=== PATIENT | female | born 1950 | race Caucasian/White ===

== ENCOUNTER 2024-01-25 12:49 | Outpatient (AMB) | payer MEDICARE, SELFPAY ==
--- NOTE | 2024-01-25 12:56 | MHC.PC.OV ---
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 Accompanied by: Self / Same As Patient Allergies escitalopram [From Lexapro] Allergy (Severe, Verified 01/25/24 13:02) Unknown amoxicillin [From Augmentin] Allergy (Unknown, Verified 01/25/24 13:02) Unknown atorvastatin [From Lipitor] Allergy (Unknown, Verified 01/25/24 13:02) Unknown azithromycin [From Zithromax Z-Elliot] Allergy (Unknown, Verified 01/25/24 13:02) Unknown clavulanic acid [From Augmentin] Allergy (Unknown, Verified 01/25/24 13:02) Unknown diltiazem Allergy (Unknown, Verified 01/25/24 13:02) Unknown fexofenadine [From Candi] Allergy (Unknown, Verified 01/25/24 13:02) Unknown morphine Allergy (Unknown, Verified 01/25/24 13:02) Unknown nifedipine [From Procardia] Allergy (Unknown, Verified 01/25/24 13:02) Unknown pravastatin [From Pravachol] Allergy (Unknown, Verified 01/25/24 13:02) Unknown Tobacco use date assessed: 01/25/24 Fall risk assessment: No Falls in past year Last assessed Fall Risk: 01/25/24 Dental Screening Dental Screen Date: 01/25/24 Did you have a dental visit in the last 12 months?: Yes Did you have a dental problem in the last 6 months where you did not have access to dental care?: No Was dental information given to patient?: Patient has dentist HPI HPI Comments History of Present Illness Details This is a 73 year old female with a past medical history of hypertension, hyperlipidemia, dpression, anxiety, KD stage III presenting for follow up CV: On losartan 25mg daily, on simvastatin 10mg daily. Lipids at goal. Intolerant of pravastatin and atorvastatin previouslyBlood pressure is well controlled. Previously was having CP -worked up for ACS. Had b/l cataract surgery 2021 CKD Stage III:-saw Dr Gamboa in the past. Creatinine has been stable Depression/anxiety-taking celexa 10mg once daily Cologuard 03/2022-negative Mammo 04/2023 [facility]BSO 02/16/2022 ROS CONSTITUTIONAL: Denies weight loss, fever and chills. HEENT: Denies changes in vision and hearing. RESPIRATORY: Denies SOB and cough. CV: Denies palpitations and CP GI: Denies abdominal pain, nausea, vomiting and diarrhea. : Denies dysuria and urinary frequency. MSK: Denies new myalgia and joint pain. SKIN: Denies rash and pruritus. NEUROLOGICAL: Denies headache PSYCHIATRIC: Denies recent changes in mood. PHYSICAL EXAM: GENERAL: Alert and oriented x 3. NAD EYES: EOMI. Anicteric. HENT: Moist mucous membranes. No scleral icterus. No cervical lymphadenopathy. LUNGS: Clear to auscultation bilaterally. CARDIOVASCULAR: Regular rate and rhythm. No murmur. No JVD. ABDOMEN: Soft, non-tender +bs EXTREMITIES: No edema. Non-tender. SKIN: No rashes or lesions. Warm. NEUROLOGIC: No focal neurological deficits. CN II-XII grossly intact PSYCHIATRIC: Cooperative. Appropriate mood and affect [facility] Medical History Prediabetes Mass of subcutaneous tissue of back Mass of soft tissue of upper arm Hypertension HLD (hyperlipidemia) History of [place] syndrome Elevated fasting glucose Depression with anxiety CKD stage 3b, GFR 30-44 ml/min Cataracts, bilateral Bilateral kidney stones Allergic rhinitis Surgical History History of colonoscopy History of total adrenalectomy History of bilateral salpingo-oophorectomy (BSO) History of total abdominal hysterectomy History of cataract surgery Family History Mother Lung cancer Brother Cardiac disease Father Hx of CABG High cholesterol Stroke Maternal Grandfather Gastric adenocarcinoma Paternal Grandmother Pneumonia Paternal Grandfather Parkinson disease Paternal Aunt Cancer Paternal Uncle Lung cancer Social History Household Members: Spouse Housing: House Alcohol intake: never Patient Tobacco Use Status: Former Tobacco user e-Cigarette/Vaping Use: Never Used service: No Current occupational status: retired Current occupational exposures/hazards: No Cognitive needs: No Hearing needs: No Vision needs: No Questionnaire PHQ-9 Over the last 2 weeks, how often have you been bothered by any of the following problems? 1. Little interest or pleasure in doing things: not at all 2. Feeling down, depressed, or hopeless: not at all 3. Trouble falling or staying asleep, or sleeping too much: not at all 4. Feeling tired or having little energy: not at all 5. Poor appetite or overeating: several days 6. Feeling bad about yourself - or that you are a failure or have let yourself or your family down: not at all 7. Trouble concentrating on things, such as reading the newspaper or watching television: not at all 8. Moving or speaking so slowly that other people could have noticed. Or the opposite - being so fidgety or restless that you have been moving around a lot more than usual: not at all 9. Thoughts that you would be better off or of hurting yourself in some way: not at all Total score: 1 Depression Screening Interpretation: Negative (neg) Depression Screening Done: Yes 27434 - PHQ-9 Billing: Yes Source: Developed by Drs. Girma aJime, Nadya Rodriguez, Ilan Currie and colleagues, with an educational harvey from [employer]. Thrive Questionnaire Date Thrive assessed: 01/25/24 I am a: Patient What is your living situation today?: I have a steady place to live Within the past 12 months, did the food you bought not last and you didn't have the money to get more?: Never true Within the past 12 months, did you worry whether your food would run out before you got money to buy more?: Never true Do you have trouble paying for medicines?: No Do you have trouble getting transportation to medical appointments?: No Do you have trouble paying your heating and electricity bill?: No Do you have trouble taking care of your child, family member or friend?: No Do you have trouble with day-to-day activities such as bathing, preparing meals, shopping, managing finances, etc.?: No Are you currently unemployed and looking for a job?: No Are you interested in more education?: No Please select the resources that you would like help with: None Currently or been in a relationship where the following occur: No concerns reported THRIVE Score: 0 AUDIT C Alcohol Use Questionnaire (AUDIT-C) 1. How often do you have a drink containing alcohol?: Never 3. How often do you have six or more drinks on one occasion?: Never Total Score: 0 LAUREN-7 AMB Questionnaire LAUREN-7 Date LAUREN - 7 assessed: 01/25/24 Feeling nervous, anxious, or on edge: 1 = Several days Not being able to stop or control worryin = Several days Worrying too much about different things: 1 = Several days Trouble relaxin = Several days Being so restless that it is hard to sit still: 1 = Several days Becoming easily annoyed or irritable: 0 = Not at all Feeling afraid as if something awful might happen: 1 = Several days Total LAUREN-7 score (0-4 normal; 5-9 mild; 10-14 moderate; 15-21 severe): 6 Source: Developed by Drs. Girma Jaime, Nadya Rodriguez, Ilan Currie and colleagues, with an educational harvey from [employer]. LAUREN-7 Assessment Billing LAUREN-7 Assessment Tool: LAUREN-7 Assessment 16124 Physical exam (Primary Care) Vital Signs: Last Vital Signs Pulse 95 01/25/24 13:04 Resp 13 01/25/24 13:04 BP 118/56 L 01/25/24 13:04 Pulse Ox 96 01/25/24 13:04 Oxygen Delivery Method Room Air 01/25/24 13:04 BMI result Body Mass Index 26.6 Tobacco/Smoking Status: Tobacco use Status Tobacco use date assessed 01/25/24 01/25/24 13:13 Patient Tobacco Use Status Former Tobacco user 01/25/24 13:13 e-Cigarette/Vaping Use Never Used 01/25/24 13:13 PHQ-9: PHQ-9 Score PHQ-9: Total score 1 01/25/24 14:05 Depression Screening Interpretation: Negative (neg) Thrive Assessment: Date of Thrive Assessment Date Thrive assessed 01/25/24 01/25/24 13:13 Currently or been in a relationship where the following occur: No concerns reported Assessment and Plan Assessment & Plan (1) CKD stage 3b, GFR 30-44 ml/min: Code(s): N18.32 - Chronic kidney disease, stage 3b Plan: monitor levels. avoid nsaids. labs ordered (2) HLD (hyperlipidemia): Code(s): E78.5 - Hyperlipidemia, unspecified Qualifiers: Hyperlipidemia type: mixed hyperlipidemia Qualified Code(s): E78.2 - Mixed hyperlipidemia (3) Depression with anxiety: Code(s): F41.8 - Other specified anxiety disorders Plan: stable (4) Hypertension: Code(s): I10 - Essential (primary) hypertension Qualifiers: Hypertension type: primary hypertension Qualified Code(s): I10 - Essential (primary) hypertension (5) Prediabetes: Code(s): R73.03 - Prediabetes Plan: check A1c Orders: Orders Lipid Panel 01/25/24 E78.2 - Mixed hyperlipidemia, F41.8 - Other specified anxiety disorders, I10 - Essential (primary) hypertension, N18.32 - Chronic kidney disease, stage 3b, R73.03 - Prediabetes Vitamin B12 01/25/24 R53.83 - Other fatigue Comprehensive Met. Panel 01/25/24 E78.2 - Mixed hyperlipidemia, F41.8 - Other specified anxiety disorders, I10 - Essential (primary) hypertension, N18.32 - Chronic kidney disease, stage 3b, R73.03 - Prediabetes Hemoglobin A1c 01/25/24 E78.2 - Mixed hyperlipidemia, F41.8 - Other specified anxiety disorders, I10 - Essential (primary) hypertension, N18.32 - Chronic kidney disease, stage 3b, R73.03 - Prediabetes Complete Blood Count Auto Diff 01/25/24 E78.2 - Mixed hyperlipidemia, F41.8 - Other specified anxiety disorders, I10 - Essential (primary) hypertension, R73.03 - Prediabetes Medications: New citalopram 10 mg PO DAILY 90 tabs 3RF losartan 25 mg PO DAILY 90 tabs 3RF 90 days simvastatin 10 mg PO DAILY 90 tabs 3RF Coding Level of Care Code Est Pt Level 5 (42824) Diagnoses CKD stage 3b, GFR 30-44 ml/min N18.32 Mixed hyperlipidemia E78.2 Hyperlipidemia type: mixed hyperlipidemia Depression with anxiety F41.8 Primary hypertension I10 Hypertension type: primary hypertension Prediabetes R73.03 Additional Codes LAUREN-7 Assessment Billing - LAUREN-7 Assessment Tool: LAUREN-7 Assessment [id number] ([id number])
[2024-01-25 13:04] VITALS: BP 118/56; PULSE 95; RESP 13; O2SAT 96; BMI 26.6
== END 2024-01-25 13:47 | disposition home or self-care (01) ==
PROVIDERS: PCP Internal Medicine; Visit Provider Internal Medicine
DX: I12.9 Hypertensive chronic kidney disease with stage 1 through stage 4 chronic kidney disease, or unspecified chronic kidney disease (principal); N18.32 Chronic kidney disease, stage 3b; E78.2 Mixed hyperlipidemia; F41.8 Other specified anxiety disorders; R73.03 Prediabetes
CPT/HCPCS: 99214

== ENCOUNTER 2024-01-25 13:52 | Outpatient (REF) | payer MEDICARE, SELFPAY ==
[2024-01-25 17:08] LABS: MANUAL DIFF FLAG NO
[2024-01-25 17:19] LABS: Estimated Average Glucose 108 mg/dL; Hemoglobin A1c % 5.4 % (<6.0)
[2024-01-25 17:29] LABS: Alanine Aminotransferase 10 U/L (0-31); Albumin Level 4.1 g/dL (3.5-5.0); Alkaline Phosphatase 96 U/L (39-117); Anion Gap 13 (12-20); Aspartate Amino Transferase 14 U/L (5-31); Bilirubin Total 0.5 mg/dL (0.0-1.0); Blood Urea Nitrogen 18 mg/dL (9-16); Calcium 10.1 mg/dL (8.4-10.2); Carbon Dioxide 28 mmol/L (22-29); Chloride 106 mmol/L (96-108); Cholesterol 169 mg/dL (<200); Estimated Glomerular Filt Rate 52; Glucose Random 92 mg/dL (60-115); HDL Cholesterol 47 mg/dL (>40); LDL Cholesterol Calculated 87 mg/dL (<100); Potassium 3.7 mmol/L (3.3-5.1); Sodium 143 mmol/L (135-145); Triglycerides 175 mg/dL (<150)
[2024-01-25 17:35] LABS: Basophils Percent Auto 0.6 % (0-2); Eosinophils Absolute Auto 0.3 X10*3/uL (0.0-0.4); Eosinophils Percent Auto 5.5 % (0-4); Hematocrit 38.4 % (37.0-47.0); Hemoglobin 13.1 g/dl (12.0-16.0); Imm Gran Abs Auto 0.01 X10*3/uL (0.00-0.03); Imm Gran Pct Auto 0.2 % (0.0-0.4); Lymphocytes Absolute Auto 1.3 X10*3/uL (1.2-4.9); Lymphocytes Percent Auto 24.2 % (20-40); Mean Corpuscular HGB Conc 34.1 g/dl (31.0-35.0); Mean Corpuscular Hemoglobin 29.9 pg (27.0-33.0); Mean Corpuscular Volume 87.7 fL (80.0-98.0); Mean Platelet Volume 11.3 fL (9.4-12.3); Monocytes Absolute Auto 0.4 X10*3/uL (0.1-1.2); Monocytes Percent Auto 7.9 % (2-11); Neutrophils Absolute Auto 3.3 x10*3/uL (2.0-8.3); Neutrophils Percent Auto 61.6 % (45-73); Platelet Count 213 X10*3/uL (160-400); Red Blood Count 4.38 X10*6/uL (4.20-5.50); Red Cell Distribution Width 12.9 % (11.0-16.0); White Blood Count 5.3 X10*3/uL (4.8-10.8)
[2024-01-25 17:56] LABS: Vitamin B12 169 pg/mL (200-900)
== END 2024-01-25 13:53 | disposition home or self-care (01) ==
LOC: HO.WFDLDS 13:52
PROVIDERS: PCP Internal Medicine; Visit Provider Internal Medicine
DX: R53.83 Other fatigue (principal); R73.03 Prediabetes; E78.2 Mixed hyperlipidemia; F41.8 Other specified anxiety disorders; I12.9 Hypertensive chronic kidney disease with stage 1 through stage 4 chronic kidney disease, or unspecified chronic kidney disease; N18.32 Chronic kidney disease, stage 3b
CPT/HCPCS: 36415; 80053; 80061; 82607; 83036; 85025

== ENCOUNTER 2024-07-11 08:47 | Outpatient (AMB) | payer MEDICARE, SELFPAY ==
--- NOTE | 2024-07-11 09:00 | A.OFFPC_ITS ---
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: No Allergies escitalopram [From Lexapro] Allergy (Severe, Verified 07/11/24 09:02) Unknown amoxicillin [From Augmentin] Allergy (Unknown, Verified 07/11/24 09:02) Unknown atorvastatin [From Lipitor] Allergy (Unknown, Verified 07/11/24 09:02) Unknown azithromycin [From Zithromax Z-Elliot] Allergy (Unknown, Verified 07/11/24 09:02) Unknown clavulanic acid [From Augmentin] Allergy (Unknown, Verified 07/11/24 09:02) Unknown diltiazem Allergy (Unknown, Verified 07/11/24 09:02) Unknown fexofenadine [From Candi] Allergy (Unknown, Verified 07/11/24 09:02) Unknown morphine Allergy (Unknown, Verified 07/11/24 09:02) Unknown nifedipine [From Procardia] Allergy (Unknown, Verified 07/11/24 09:02) Unknown pravastatin [From Pravachol] Allergy (Unknown, Verified 07/11/24 09:02) Unknown Medication List - Last Reconciled 07/11/24 by Sakshi Bruner MD citalopram 10 mg PO DAILY losartan 25 mg PO DAILY 90 days simvastatin 10 mg PO DAILY Tobacco use date assessed: 01/25/24 Fall risk assessment: No Falls in past year Last assessed Fall Risk: 07/11/24 Dental Screening Dental Screen Date: 01/25/24 HPI HPI Comments History of Present Illness Details This is a 73 year old female with a past medical history of hypertensio n, hyperlipidemia, dpression, anxiety, CKD stage III presenting for AWV CV: On losartan 25mg daily, on simvastatin 10mg daily. Lipids at goal. Intolerant of pravastatin and atorvastatin previouslyBlood pressure is well controlled. Previously was having CP -worked up for ACS. Had b/l cataract surgery 2021 CKD Stage III:-saw Dr Gamboa in the past remotely. Creatinine has been stable. History of adrenalectomy Depression/anxiety-taking celexa 10mg once daily. Feels good on this dose Cologuard 03/2022-negative Mammo 04/2024 [facility]O 02/16/2022 Care team reviewed-no specialists HRA reviewed Independent ADLs 09/22 recall ROS CONSTITUTIONAL: Denies weight loss, fever and chills. HEENT: Denies changes in vision and hearing. RESPIRATORY: Denies SOB and cough. CV: Denies palpitations and CP GI: Denies abdominal pain, nausea, vomiting and diarrhea. : Denies dysuria and urinary frequency. MSK: Denies new myalgia and joint pain. SKIN: Denies rash and pruritus. NEUROLOGICAL: Denies headache PSYCHIATRIC: Denies recent changes in mood. PHYSICAL EXAM: GENERAL: Alert and oriented x 3. NAD EYES: EOMI. Anicteric. HENT: Moist mucous membranes. No scleral icterus. No cervical lymphadenopathy. LUNGS: Clear to auscultation bilaterally. CARDIOVASCULAR: Regular rate and rhythm. No murmur. No JVD. ABDOMEN: Soft, non-tender +bs EXTREMITIES: No edema. Non-tender. SKIN: No rashes or lesions. Warm. NEUROLOGIC: No focal neurological deficits. CN II-XII grossly intact PSYCHIATRIC: Cooperative. Appropriate mood and affect [facility] Medical History Prediabetes Mass of subcutaneous tissue of back Mass of soft tissue of upper arm Hypertension HLD (hyperlipidemia) History of [place] syndrome Elevated fasting glucose Depression with anxiety CKD stage 3b, GFR 30-44 ml/min Cataracts, bilateral Bilateral kidney stones Allergic rhinitis Surgical History History of colonoscopy History of total adrenalectomy History of bilateral salpingo-oophorectomy (BSO) History of total abdominal hysterectomy History of cataract surgery Family History Mother Lung cancer Brother Cardiac disease Father Hx of CABG High cholesterol Stroke Maternal Grandfather Gastric adenocarcinoma Paternal Grandmother Pneumonia Paternal Grandfather Parkinson disease Paternal Aunt Cancer Paternal Uncle Lung cancer Social History Household Members: Spouse Housing: House Alcohol intake: never Patient Tobacco Use Status: Former Tobacco user e-Cigarette/Vaping Use: Never Used service: No Current occupational status: retired Current occupational exposures/hazards: No Cognitive needs: No Hearing needs: No Vision needs: No Questionnaire Thrive Questionnaire Date Thrive assessed: 01/25/24 AUDIT C Alcohol Use Questionnaire (AUDIT-C) 2. How many drinks containing alcohol do you have on a typical day when you are drinking?: 1 or 2 3. How often do you have six or more drinks on one occasion?: Never Total Score: 0 LAUREN-7 AMB Questionnaire LAUREN-7 Date LAUREN - 7 assessed: 01/25/24 Source: Developed by Drs. Girma Jaime, Nadya Rodriguez, Ilan Currie and colleagues, with an educational harvey from [employer]. Physical exam (Primary Care) Vital Signs: Last Vital Signs Pulse 68 07/11/24 09:03 BP 124/68 07/11/24 09:03 Pulse Ox 97 07/11/24 09:03 Oxygen Delivery Method Room Air 07/11/24 09:03 BMI result Body Mass Index 27.8 Tobacco/Smoking Status: Tobacco use Status Tobacco use date assessed 01/25/24 07/11/24 09:02 Patient Tobacco Use Status Former Tobacco user 07/11/24 09:09 e-Cigarette/Vaping Use Never Used 07/11/24 09:09 Thrive Assessment: Date of Thrive Assessment Date Thrive assessed 01/25/24 07/11/24 09:02 Coding Level of Care Code Est Pt Level 4 (99758) Diagnoses Encounter for initial annual wellness visit (AWV) in Medicare patient Z00.00 Primary hypertension I10 Hypertension type: primary hypertension Mixed hyperlipidemia E78.2 Hyperlipidemia type: mixed hyperlipidemia Prediabetes R73.03 CKD stage 3b, GFR 30-44 ml/min N18.32 Recurrent major depressive disorder, in partial remission F33.41 Major depression recurrence: recurrent Assessment & Plan Assessment & Plan (1) Encounter for initial annual wellness visit (AWV) in Medicare patient: Code(s): Z00.00 - Encounter for general adult medical examination without abnormal findings (2) Hypertension: Code(s): I10 - Essential (primary) hypertension Category: Medical Qualifiers: Hypertension type: primary hypertension Qualified Code(s): I10 - Essential (primary) hypertension (3) HLD (hyperlipidemia): Code(s): E78.5 - Hyperlipidemia, unspecified Category: Medical Qualifiers: Hyperlipidemia type: mixed hyperlipidemia Qualified Code(s): E78.2 - Mixed hyperlipidemia (4) Prediabetes: Code(s): R73.03 - Prediabetes Category: Medical (5) CKD stage 3b, GFR 30-44 ml/min: Code(s): N18.32 - Chronic kidney disease, stage 3b Category: Medical (6) Major depression in partial remission: Code(s): F32.4 - Major depressive disorder, single episode, in partial remission Category: Medical Qualifiers: Major depression recurrence: recurrent Qualified Code(s): F33.41 - Major depressive disorder, recurrent, in partial remission Plan AWV see HPI HTN-well controlled MDD-stable on current medications CKD-stable Orders: Orders Complete Blood Count Auto Diff Today E78.2 - Mixed hyperlipidemia, I10 - Essential (primary) hypertension, N18.32 - Chronic kidney disease, stage 3b, R73.03 - Prediabetes Vitamin B12 Today E78.2 - Mixed hyperlipidemia, I10 - Essential (primary) hypertension, N18.32 - Chronic kidney disease, stage 3b, R73.03 - Prediabetes Comprehensive Met. Panel Today E78.2 - Mixed hyperlipidemia, I10 - Essential (primary) hypertension, N18.32 - Chronic kidney disease, stage 3b, R73.03 - Prediabetes Hemoglobin A1c Today R73.03 - Prediabetes
[2024-07-11 09:03] VITALS: BP 124/68; PULSE 68; O2SAT 97; BMI 27.8
== END 2024-07-11 09:42 | disposition home or self-care (01) ==
PROVIDERS: PCP Internal Medicine; Visit Provider Internal Medicine
DX: I12.9 Hypertensive chronic kidney disease with stage 1 through stage 4 chronic kidney disease, or unspecified chronic kidney disease (principal); N18.32 Chronic kidney disease, stage 3b; F33.41 Major depressive disorder, recurrent, in partial remission; E78.2 Mixed hyperlipidemia; R73.03 Prediabetes

== ENCOUNTER 2024-07-11 09:33 | Outpatient (REF) | payer MEDICARE, SELFPAY ==
[2024-07-11 11:51] LABS: MANUAL DIFF FLAG NO
[2024-07-11 11:57] LABS: Basophils Percent Auto 0.7 % (0-2); Eosinophils Absolute Auto 0.3 X10*3/uL (0.0-0.4); Eosinophils Percent Auto 5.5 % (0-4); Hematocrit 38.5 % (37.0-47.0); Hemoglobin 12.9 g/dl (12.0-16.0); Imm Gran Abs Auto 0.01 X10*3/uL (0.00-0.03); Imm Gran Pct Auto 0.2 % (0.0-0.4); Lymphocytes Absolute Auto 1.5 X10*3/uL (1.2-4.9); Mean Corpuscular HGB Conc 33.5 g/dl (31.0-35.0); Mean Corpuscular Hemoglobin 29.5 pg (27.0-33.0); Mean Corpuscular Volume 87.9 fL (80.0-98.0); Mean Platelet Volume 11.3 fL (9.4-12.3); Monocytes Absolute Auto 0.4 X10*3/uL (0.1-1.2); Neutrophils Absolute Auto 3.6 x10*3/uL (2.0-8.3); Neutrophils Percent Auto 61.6 % (45-73); Platelet Count 204 X10*3/uL (160-400); Red Blood Count 4.38 X10*6/uL (4.20-5.50); Red Cell Distribution Width 12.8 % (11.0-16.0); White Blood Count 5.8 X10*3/uL (4.8-10.8)
[2024-07-11 12:27] LABS: Estimated Average Glucose 111 mg/dL; Hemoglobin A1C 122.1457 umol/L; Hemoglobin A1c % 5.5 % (<6.0); Total Hemoglobin (HGBA1C) 3310.2278 umol/L
[2024-07-11 13:06] LABS: Alanine Aminotransferase 13 U/L (0-31); Albumin Level 3.9 g/dL (3.5-5.0); Alkaline Phosphatase 88 U/L (39-117); Anion Gap 10 (12-20); Aspartate Amino Transferase 21 U/L (5-31); Bilirubin Total 0.4 mg/dL (0.0-1.0); Blood Urea Nitrogen 20 mg/dL (9-16); Calcium 9.6 mg/dL (8.4-10.2); Carbon Dioxide 30 mmol/L (22-29); Chloride 106 mmol/L (96-108); Estimated Glomerular Filt Rate > 60; Glucose Random 86 mg/dL (60-115); Potassium 4.1 mmol/L (3.3-5.1); Sodium 142 mmol/L (135-145); Total Protein 6.9 g/dL (6.5-8.0)
[2024-07-11 13:31] LABS: Vitamin B12 241 pg/mL (200-900)
== END 2024-07-11 09:34 | disposition home or self-care (01) ==
LOC: HO.WFDLDS 09:33
PROVIDERS: Visit Provider Internal Medicine
DX: Z00.00 Encounter for general adult medical examination without abnormal findings (principal); I12.9 Hypertensive chronic kidney disease with stage 1 through stage 4 chronic kidney disease, or unspecified chronic kidney disease; N18.32 Chronic kidney disease, stage 3b; E78.2 Mixed hyperlipidemia; R73.03 Prediabetes; F33.41 Major depressive disorder, recurrent, in partial remission
CPT/HCPCS: 36415; 80053; 82607; 83036; 85025; 99212

== ENCOUNTER 2025-01-20 14:33 | Outpatient (AMB) | payer MEDICARE, SELFPAY ==
--- NOTE | 2025-01-20 15:00 | MHC.PC.OV ---
Vital Signs 01/20/25 15:05 Height 5 ft 6 in Weight 172 lb 2 oz BMI 27.8 BP 122/64 Blood Pressure Location Rt brachial Position Sitting Respiration 16 Pulse 81 Pulse Source Pulse Oximeter Temp 99.7 F Temp Source Oral Pulse Oximetry (%) 98 Oxygen Delivery Method Room Air Intake Visit Reasons: BP Intake Note: Six month follow up. Cough, nasal congestion symptoms started today. Wants to to discuss thyroid, has been feeling fatigued. [employer] Required: No Allergies escitalopram (From Lexapro) Allergy (Severe, Verified 01/20/25 15:04) Unknown amoxicillin (From Augmentin) Allergy (Unknown, Verified 01/20/25 15:04) Unknown atorvastatin (From Lipitor) Allergy (Unknown, Verified 01/20/25 15:04) Unknown azithromycin (From Zithromax Z-Elliot) Allergy (Unknown, Verified 01/20/25 15:04) Unknown clavulanic acid (From Augmentin) Allergy (Unknown, Verified 01/20/25 15:04) Unknown diltiazem Allergy (Unknown, Verified 01/20/25 15:04) Unknown fexofenadine (From Candi) Allergy (Unknown, Verified 01/20/25 15:04) Unknown morphine Allergy (Unknown, Verified 01/20/25 15:04) Unknown nifedipine (From Procardia) Allergy (Unknown, Verified 01/20/25 15:04) Unknown pravastatin (From Pravachol) Allergy (Unknown, Verified 01/20/25 15:04) Unknown Tobacco use date assessed: 01/20/25 Fall risk assessment: No Falls in past year Last assessed Fall Risk: 01/20/25 Dental Screening Dental Screen Date: 01/20/25 Did you have a dental visit in the last 12 months?: Yes Did you have a dental problem in the last 6 months where you did not have access to dental care?: No Was dental information given to patient?: Patient has dentist HPI HPI Comments History of Present Illness Details This is a 73 year old female with a past medical history of hypertension, hyperlipidemia, depression, anxiety, CKD stage III presenting for follow up She has had increased fatigue, nasal congestion, feeling run down for the past few weeks. No fevers or sore throat. Her has been sick with a URI. CV: On losartan 25mg daily, on simvastatin 10mg daily. Blood pressure is well controlled. Intolerant of pravastatin and atorvastatin. Previously was having CP -worked up for ACS. Had b/l cataract surgery 2021 CKD Stage III:-saw Dr Gamboa in the past remotely. Creatinine has been stable. History of adrenalectomy Depression/anxiety-taking celexa 10mg once daily. Feels good on this dose Cologuard 03/2022-negative Mammo 04/2024 [facility]O 02/16/2022 Had b/l cataract surgery 2021 ROS CONSTITUTIONAL: Denies weight loss, fever and chills. HEENT: Denies changes in vision and hearing. RESPIRATORY: Denies SOB and cough. CV: Denies palpitations and CP GI: Denies abdominal pain, nausea, vomiting and diarrhea. : Denies dysuria and urinary frequency. MSK: Denies new myalgia and joint pain. SKIN: Denies rash and pruritus. NEUROLOGICAL: Denies headache PSYCHIATRIC: Denies recent changes in mood. PHYSICAL EXAM: GENERAL: Alert and oriented x 3. NAD EYES: EOMI. Anicteric. HENT: Moist mucous membranes. No scleral icterus. No cervical lymphadenopathy. LUNGS: Clear to auscultation bilaterally. CARDIOVASCULAR: Regular rate and rhythm. No murmur. No JVD. ABDOMEN: Soft, non-tender +bs EXTREMITIES: No edema. Non-tender. SKIN: No rashes or lesions. Warm. NEUROLOGIC: No focal neurological deficits. CN II-XII grossly intact PSYCHIATRIC: Cooperative. Appropriate mood and affect [facility] Medical History Prediabetes Mass of subcutaneous tissue of back Mass of soft tissue of upper arm Hypertension HLD (hyperlipidemia) History of [place] syndrome Elevated fasting glucose Depression with anxiety CKD stage 3b, GFR 30-44 ml/min Cataracts, bilateral Bilateral kidney stones Allergic rhinitis Surgical History History of colonoscopy History of total adrenalectomy History of bilateral salpingo-oophorectomy (BSO) History of total abdominal hysterectomy History of cataract surgery Family History Mother Lung cancer Brother Cardiac disease Father Hx of CABG High cholesterol Stroke Maternal Grandfather Gastric adenocarcinoma Paternal Grandmother Pneumonia Paternal Grandfather Parkinson disease Paternal Aunt Cancer Paternal Uncle Lung cancer Social History Household Members: Spouse Housing: House 75 years or older and lives alone: No Alcohol intake: never Patient Tobacco Use Status: Former Tobacco user e-Cigarette/Vaping Use: Never Used service: No Current occupational status: retired Current occupational exposures/hazards: No Cognitive needs: No Hearing needs: No Vision needs: No Questionnaire PHQ-9 Over the last 2 weeks, how often have you been bothered by any of the following problems? 1. Little interest or pleasure in doing things: several days 2. Feeling down, depressed, or hopeless: not at all 4. Feeling tired or having little energy: several days 5. Poor appetite or overeating: not at all 6. Feeling bad about yourself - or that you are a failure or have let yourself or your family down: not at all 7. Trouble concentrating on things, such as reading the newspaper or watching television: not at all 8. Moving or speaking so slowly that other people could have noticed. Or the opposite - being so fidgety or restless that you have been moving around a lot more than usual: not at all 9. Thoughts that you would be better off or of hurting yourself in some way: not at all Source: Developed by Drs. Girma Jaime, Nadya Rodriguez, Ilan Currie and colleagues, with an educational harvey from [employer]. Thrive Questionnaire Date Thrive assessed: 01/13/25 I am a: Patient What is your living situation today?: I have a steady place to live Within the past 12 months, did the food you bought not last and you didn't have the money to get more?: Never true Within the past 12 months, did you worry whether your food would run out before you got money to buy more?: Never true Do you have trouble paying for medicines?: No Do you have trouble getting transportation to medical appointments?: No Do you have trouble paying your heating and electricity bill?: No Do you have trouble taking care of your child, family member or friend?: No Do you have trouble with day-to-day activities such as bathing, preparing meals, shopping, managing finances, etc.?: No Are you currently unemployed and looking for a job?: No Are you interested in more education?: No Please select the resources that you would like help with: None Currently or been in a relationship where the following occur: I choose not to answer THRIVE Score: 0 AUDIT C Alcohol Use Questionnaire (AUDIT-C) 1. How often do you have a drink containing alcohol?: Never 3. How often do you have six or more drinks on one occasion?: Never Total Score: 0 LAUREN-7 AMB Questionnaire LAUREN-7 Date LAUREN - 7 assessed: 01/25/24 Feeling nervous, anxious, or on edge: 0 = Not at all Not being able to stop or control worryin = Not at all Worrying too much about different things: 0 = Not at all Trouble relaxin = Not at all Being so restless that it is hard to sit still: 0 = Not at all Becoming easily annoyed or irritable: 0 = Not at all Feeling afraid as if something awful might happen: 0 = Not at all Total LAUREN-7 score (0-4 normal; 5-9 mild; 10-14 moderate; 15-21 severe): 0 Source: Developed by Drs. Girma Jaime, Nadya Rodriguez, Ilan Currie and colleagues, with an educational harvey from [employer]. Physical exam (Primary Care) Vital Signs: Last Vital Signs Temp 99.7 F 01/20/25 15:05 Pulse 81 01/20/25 15:05 Resp 16 01/20/25 15:05 BP 122/64 01/20/25 15:05 Pulse Ox 98 01/20/25 15:05 Oxygen Delivery Method Room Air 01/20/25 15:05 BMI result Body Mass Index 27.8 Tobacco/Smoking Status: Tobacco use Status Tobacco use date assessed 01/20/25 01/20/25 15:10 Patient Tobacco Use Status Former Tobacco user 01/20/25 15:10 e-Cigarette/Vaping Use Never Used 01/20/25 15:10 Thrive Assessment: Date of Thrive Assessment Date Thrive assessed 01/13/25 01/20/25 15:10 Currently or been in a relationship where the following occur: I choose not to answer Coding Level of Care Code Est Pt Level 4 (66714) Complex EM visit Add On G2211 Diagnoses Recurrent major depressive disorder, in partial remission F33.41 Major depression recurrence: recurrent Primary hypertension I10 Hypertension type: primary hypertension Mixed hyperlipidemia E78.2 Hyperlipidemia type: mixed hyperlipidemia Assessment & Plan Assessment & Plan (1) Major depression in partial remission: Code(s): F32.4 - Major depressive disorder, single episode, in partial remission Category: Medical Qualifiers: Major depression recurrence: recurrent Qualified Code(s): F33.41 - Major depressive disorder, recurrent, in partial remission (2) Hypertension: Code(s): I10 - Essential (primary) hypertension Category: Medical Qualifiers: Hypertension type: primary hypertension Qualified Code(s): I10 - Essential (primary) hypertension (3) HLD (hyperlipidemia): Code(s): E78.5 - Hyperlipidemia, unspecified Category: Medical Qualifiers: Hyperlipidemia type: mixed hyperlipidemia Qualified Code(s): E78.2 - Mixed hyperlipidemia Plan MDD-stable on current medications Hypertension well controlled on current medications Recent sinus congestion, fatigue. Doxycycline sent. Labs ordered Orders: Orders Comprehensive Met. Panel 01/20/25 R53.83 - Other fatigue, R73.03 - Prediabetes UA CC w/rflx Micro + Cult 01/20/25 R53.83 - Other fatigue, R73.03 - Prediabetes Hemoglobin A1c 01/20/25 R73.03 - Prediabetes TSH reflex Free T4 01/20/25 R53.83 - Other fatigue, R73.03 - Prediabetes Complete Blood Count Auto Diff 01/20/25 R53.83 - Other fatigue, R73.03 - Prediabetes IRON PROFILE 01/20/25 R53.83 - Other fatigue, R73.03 - Prediabetes Vitamin B12 and Folate 01/20/25 R53.83 - Other fatigue, R73.03 - Prediabetes Medications: New doxycycline hyclate 100 mg PO BID 14 tabs 0RF Refilled citalopram 10 mg PO DAILY 90 tabs 3RF losartan 25 mg PO DAILY 90 days 90 tabs 3RF simvastatin 10 mg PO DAILY 90 tabs 3RF citalopram 10 mg PO DAILY 90 tabs 3RF losartan 25 mg PO DAILY 90 tabs 3RF 90 days simvastatin 10 mg PO DAILY 90 tabs 3RF
[2025-01-20 15:05] VITALS: BP 122/64; PULSE 81; RESP 16; TEMP 37.6; O2SAT 98; BMI 27.8
== END 2025-01-20 15:37 | disposition home or self-care (01) ==
LOC: HO.HMCFM 14:34
PROVIDERS: PCP Internal Medicine; Visit Provider Internal Medicine
DX: F33.41 Major depressive disorder, recurrent, in partial remission (principal); I10 Essential (primary) hypertension; E78.2 Mixed hyperlipidemia

== ENCOUNTER 2025-01-20 15:25 | Outpatient (REF) | payer MEDICARE, SELFPAY ==
[2025-01-20 18:02] LABS: MANUAL DIFF FLAG NO
[2025-01-20 18:11] LABS: Hematocrit 39.2 % (37.0-47.0); Hemoglobin 12.9 g/dl (12.0-16.0); Imm Gran Abs Auto 0.01 X10*3/uL (0.00-0.03); Imm Gran Pct Auto 0.2 % (0.0-0.4); Lymphocytes Absolute Auto 1.5 X10*3/uL (1.2-4.9); Mean Corpuscular HGB Conc 32.9 g/dl (31.0-35.0); Mean Corpuscular Hemoglobin 29.1 pg (27.0-33.0); Mean Corpuscular Volume 88.5 fL (80.0-98.0); NRBC Abs Auto 0.000 X10*3/uL (0.0-0.012); NRBC Pct Auto 0.0 /100WBC (0.0-0.2); Platelet Count 199 X10*3/uL (160-400); Red Blood Count 4.43 X10*6/uL (4.20-5.50); White Blood Count 6.1 X10*3/uL (4.8-10.8)
[2025-01-20 18:42] LABS: Alanine Aminotransferase 11 U/L (0-31); Albumin Level 4.2 g/dL (3.5-5.0); Alkaline Phosphatase 95 U/L (39-117); Anion Gap 12 (12-20); Aspartate Amino Transferase 20 U/L (5-31); Blood Urea Nitrogen 19 mg/dL (9-16); Calcium 9.4 mg/dL (8.4-10.2); Carbon Dioxide 28 mmol/L (22-29); Chloride 105 mmol/L (96-108); Estimated Glomerular Filt Rate 52; Iron 35 mcg/dL (30-160); Percent Iron Saturation 14 % (15-50); Potassium 4.1 mmol/L (3.3-5.1); Sodium 141 mmol/L (135-145); Total Iron Binding Capacity 250 mcg/dL (228-428); Total Protein 7.1 g/dL (6.5-8.0); Unsaturated Iron Binding 215 ug/dL
[2025-01-20 19:04] LABS: Appearance Urine Hazy; Glucose Urine UA Negative (Negative); PH 7.5 (5.0-9.0); Specific Gravity - Urine 1.010 (1.005-1.025); UMIC TRIGGER UACC YES
[2025-01-20 19:08] LABS: Folate 10.8 ng/mL (> or = 4.0); Vitamin B12 328 pg/mL (200-900)
[2025-01-20 19:10] LABS: UACC Culture Trigger YES
[2025-01-21 07:11] LABS: Hemoglobin A1C 126.1666 umol/L; Total Hemoglobin (HGBA1C) 3396.0186 umol/L
== END 2025-01-20 15:26 | disposition home or self-care (01) ==
LOC: HO.WFDLDS 15:25
PROVIDERS: Visit Provider Internal Medicine
DX: R73.03 Prediabetes (principal); R53.83 Other fatigue
CPT/HCPCS: 36415; 80053; 81001; 81003; 82607; 82746; 83036; 83540; 84443; 85025; 87086; 99212